=== PATIENT | male | born 1965 | race Two or more races ===

== ENCOUNTER 2019-06-14 09:19 | Emergency (ER) | payer BC, MEDICAID ==
[2019-06-14] MEDS: DEXAMETHASONE 10 MG/ML 1 ML INJ IM (10:16)
[2019-06-14] MEDS: KETOROLAC 30 MG INJ IM (10:16)
== END 2019-06-14 10:49 | disposition home or self-care (01) ==
LOC: FTE 09:19
DX: M79.605 Pain in left leg (principal); J45.909 Unspecified asthma, uncomplicated
CPT/HCPCS: 96372; 99284-25; J1100